=== PATIENT | male | born 1960 | race Caucasian/White ===

== ENCOUNTER 2019-06-07 22:20 | Emergency (ER) | payer OTHER ==
[~2019-06-07] VITALS: Ht 172.7 cm; Wt 95.3 kg
[2019-06-07 22:20] VITALS: BP 109/63
--- NOTE | 2019-06-07 22:20 | NUR ---
PT ANDI BLS TO ER BED 08
--- NOTE | 2019-06-07 22:20 | NUR ---
BROUGHT IN BY ABULANCE. HERE FOR ETOH INTOXICATION. PLACED IN BED 8.
[2019-06-07] MEDS ORDERED: NACL 0.9% 1,000 ML IV ONE (22:35)
--- NOTE | 2019-06-07 22:49 | NUR ---
GAUGE 22 IV LINE ESTABLISHED TO THE LEFT HAND. NS 1 LITER BOLUS GIVEN.
--- NOTE | 2019-06-08 00:01 | NUR ---
BLOOD DRAWN BY LAB.
[2019-06-08 00:20] LABS: BASOPHILS # (AUTO) 0.1 K/uL (0.00-0.22); BASOPHILS % (AUTO) 0.7 % (0.0-2.0); EOSINOPHILS # (AUTO) 0.1 K/uL (0-0.4); HEMATOCRIT 37.8 % (36-52); HEMOGLOBIN 13.1 g/dL (12.0-18.0); LYMPHOCYTES # (AUTO) 2.2 K/uL (2.0-11.5); LYMPHOCYTES % (AUTO) 22.1 % (20.5-51.1); MEAN CORPUSCULAR HEMOGLOBIN 32 pg (27-31); MEAN CORPUSCULAR HGB CONC 35 g/dL (33-37); MEAN CORPUSCULAR VOLUME 93.2 fL (80-94); MONOCYTES # (AUTO) 0.5 K/uL (0.8-1.0); MONOCYTES % (AUTO) 4.6 % (1.7-9.3); NEUTROPHILS # (AUTO) 7.3 K/uL (1.8-7.7); NEUTROPHILS % (AUTO) 71.6 % (42.2-75.2); PLATELET COUNT (AUTO) 206 K/uL (140-450); RED BLOOD CELL COUNT(AUTO) 4.06 MIL/uL (4.20-6.10); RED CELL DISTRIBUTION WIDTH 13.7 % (11.6-13.7); WHITE BLOOD COUNT (AUTO) 10.2 K/uL (4.8-10.8)
[2019-06-08 00:52] LABS: ALBUMIN 3.5 g/dL (3.4-5.0); ANION GAP 16.7 (8-16); CARBON DIOXIDE 22.3 mmol/L (21-32); CREATININE 1.1 mg/dL (0.7-1.3); TOTAL BILIRUBIN 0.4 mg/dL (0.0-1.0)
[2019-06-08] MEDS ORDERED: POTASSIUM CHLORIDE 10 MEQ TABER PO ONE (01:05)
--- NOTE | 2019-06-08 01:20 | NUR ---
KCL 40 MEQ PO GIVEN FOR SERUM POTASSIUM=3.0.
--- NOTE | 2019-06-08 02:45 | NUR ---
ASLEEP, NOT IN ANY KIND OF DISTRESS. NO PAIN OR DISCOMFORT NOTED. VS REMAIN STABLE.
--- NOTE | 2019-06-08 04:30 | NUR ---
PT SLEEPING IN BED, VSS.
--- NOTE | 2019-06-08 06:49 | NUR ---
PT IS ALERT AND ORENTED X 4. PT STATED "OK TO BE D/C". WILL TRY TO CONTACT FAMILY FOR TRANSPORT BACK HOME.
--- NOTE | 2019-06-08 06:50 | NUR ---
PT IS NOT ABLE TO RECALL FAMILY PHONE NUMBERS AND DOES NOT HAVE HIS CELL PHONE. PT WILL LET NURSE KNOW IF HE REMEMBERS INFORMATION. ER MADE AWARE OF STATUS.
--- NOTE | 2019-06-08 07:00 | NUR ---
CALLED PT EX TO SEE IF SHE COULD GIVE PT HIS DAUGHTER'S PHONE INFORMATION. NO ANSWER, LEFT JAIRO. [phone]
--- NOTE | 2019-06-08 07:10 | NUR ---
RECEIVED REPORT FROM RETAIL MERCHANDISER RN
--- NOTE | 2019-06-08 07:20 | NUR ---
CALLED [employer] TO GET PT CLOTHING, NO ANSWER AT THIS TIME.
[2019-06-08 07:24] VITALS: BP 124/70
--- NOTE | 2019-06-08 07:24 | NUR ---
Patient discharged with v/s stable. Written and verbal after care instructions given and explained. Patient verbalized understanding. Ambulatory with steady gait. All questions addressed prior to discharge. Advised to follow up with PMD. PT WAITING FOR CLOTHING FROM [employer] AND THEN GOING TO WAIT IN LOBBY FOR CALL BACK FROM EX . Addendum: 06/08/19 at [id number] by HUAN PT STATES HE DOES NOT WANT A BUS VOUCHER
--- NOTE | 2019-06-08 07:50 | NUR ---
PT RECEIVED WEATHER APPROPRIATE CLOTHING FROM [employer], UNABLE TO GET A HOLD OF PT EX OR DAUGHTER, CHARGE NURSE TEODORO CALLED HOUSE SUPERVISER FOR TAXI VOUCHER
== END 2019-06-08 07:24 | disposition home or self-care (01) ==
LOC: MED 22:20
DX: S50.311A Abrasion of right elbow, initial encounter (principal); F10.129 Alcohol abuse with intoxication, unspecified; E87.6 Hypokalemia; E11.9 Type 2 diabetes mellitus without complications; I10 Essential (primary) hypertension; F32.9 Major depressive disorder, single episode, unspecified; X58.XXXA Exposure to other specified factors, initial encounter; Y93.89 Activity, other specified; Y92.89 Other specified places as the place of occurrence of the external cause; Y99.8 Other external cause status
CPT/HCPCS: 36415; 80053; 82948; 85025; 99283; J7030

== ENCOUNTER 2019-11-08 20:29 | Emergency (ER) | payer OTHER ==
[~2019-11-08] VITALS: Ht 175.3 cm; Wt 111.6 kg
--- NOTE | 2019-11-08 20:29 | NUR ---
PT EDEA BLS TO ER BED 09
[2019-11-08 20:30] VITALS: BP 162/80
--- NOTE | 2019-11-08 20:35 | NUR ---
PT ASSESSMENT COMPLETE. PT SEATED UPRIGHT IN BED. BEDRAILX2 UP.
[2019-11-08] MEDS ORDERED: HYDROcodone/APAP 5/325 MG 1 TAB TAB PO STA (22:28)
--- NOTE | 2019-11-08 23:08 | NUR ---
Patient discharged with v/s stable. Written and verbal after care instructions given and explained. Patient alert, oriented and verbalized understanding of instructions. Ambulatory with steady gait. All questions addressed prior to discharge. ID band removed. Patient advised to follow up with PMD. Rx of NORCO, AND IBUPROFEN given. Patient educated on indication of medication including possible reaction and side effects. Opportunity to ask questions provided and answered.
[2019-11-08 23:09] VITALS: BP 162/80
== END 2019-11-08 23:08 | disposition home or self-care (01) ==
LOC: MED 20:29
DX: K04.7 Periapical abscess without sinus (principal); F41.9 Anxiety disorder, unspecified; F32.9 Major depressive disorder, single episode, unspecified; E11.9 Type 2 diabetes mellitus without complications; I10 Essential (primary) hypertension
CPT/HCPCS: 99283